=== PATIENT | male | born 1995 | race Caucasian/White ===

== ENCOUNTER → 2022-05-27 13:47 | Outpatient (BNVA) | payer OTHER, SELFPAY | PROVIDERS: Family Provider Specialist; PCP Nurse Practitioner Family; Visit Provider Nurse Practitioner Family | DX: R39.89 Other symptoms and signs involving the genitourinary system (principal); N50.819 Testicular pain, unspecified; F12.10 Cannabis abuse, uncomplicated; F41.1 Generalized anxiety disorder; F33.2 Major depressive disorder, recurrent severe without psychotic features; F43.12 Post-traumatic stress disorder, chronic | CPT/HCPCS: 87491; 87591 ==

== ENCOUNTER → 2022-06-08 10:49 | Outpatient (BNVA) | payer OTHER, SELFPAY | PROVIDERS: Family Provider Specialist; Visit Provider Nurse Practitioner Family | DX: Z20.2 Contact with and (suspected) exposure to infections with a predominantly sexual mode of transmission (principal); Z79.899 Other long term (current) drug therapy; F41.1 Generalized anxiety disorder; Z91.89 Other specified personal risk factors, not elsewhere classified; R39.89 Other symptoms and signs involving the genitourinary system | CPT/HCPCS: 80053; 85025; 86592; 86705; 86706; 86709; 86803; 87340; 87491; 87591 ==

== ENCOUNTER 2022-10-25 08:28 | Emergency (ER) | payer SELFPAY ==
[2022-10-25] VITALS (35 sets, daily range): BP systolic 99–126; BP diastolic 54–70; PULSE 64–102; RESP 9–21; TEMP 36.6; O2SAT 94–98; BMI 22.1
--- NOTE | 2022-10-25 08:36 | ECG_ITS ---
[facility] Test Date: 2022-10-25 Pat Name: Jose Ponce Department: Room: Gender: Male Travel Rn: : 1995 Requested By: Kostas Robledo Order Number: [id number] James MD: Francisco Ramirez M.D. 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 [id number]
--- NOTE | 2022-10-25 08:45 | XR_ITS ---
WS: [id number] Exam: XR ribs LT mn 3V w CXR1V [id number] Date/Time of Exam: 10/25/2022 8:53 AM Reason For Exam: rib pain No sign of acute left rib fracture. No pleural or pulmonary reactive changes are seen. The left lung is clear and fully expanded. Old left clavicle fracture. XR/XR ribs LT mn 3V w CXR1V [id number] IMPRESSION: 1. Normal left rib study.
[2022-10-25] MEDS: ketorolac 30 mg/mL INJ IVP (08:57)
[2022-10-25 09:04] LABS: Basophils % 0.7 %; Eosinophils # 0.2 10^3/uL (0.0-0.8); Eosinophils % 3.5 %; Hematocrit 43.8 % (42.0-52.0); Hemoglobin 14.5 g/dL (11.7-16.6); Lymphocytes # 1.1 10^3/uL (0.8-4.8); Lymphocytes % 19.9 %; Mean Corpuscular HGB Conc 33.1 g/dL (30.0-36.0); Mean Corpuscular Hemoglobin 32.3 pg (28.0-34.0); Mean Corpuscular Volume 97.6 fl (80-94); Mean Platelet Volume 9.6 fL (7.4-10.4); Monocytes # 0.5 10^3/uL (0.2-0.9); Monocytes % 8.6 %; Neutrophils # 3.79 10^3/uL (1.8-7.7); Neutrophils % 66.9 %; Nucleated Red Blood Cells % 0 %; Platelet Count 242 10^3/cmm (130-400); Red Blood Count 4.49 10^6/uL (4.1-5.3); Red Cell Distribution Width 12.6 % (12.1-15.1); White Blood Count 5.7 10^3/uL (4.0-10.0)
[2022-10-25 09:21] LABS: Blood Urea Nitrogen 10 mg/dL (6-20); Carbon Dioxide 28 mmol/L (22-29); Chloride 103 mmol/L (98-107); Glomerular Filtration Rate 133.3 mL/min (90-130); Glucose 107 mg/dL (65-115); Osmolality Calculated 292 mOsm/kg (285-295); Sodium 141 mmol/L (136-145)
--- NOTE | 2022-10-25 09:27 | ED_ITS ---
HPI - Chest Pain General: Chief Complaint: Chest Pain Stated Complaint: chest/rib pain Time Seen by Provider: 10/25/22 08:45 Source: patient Mode of arrival: ambulatory History of Present Illness: 27-year-old male presents to the emergency room with left rib pain. 2 days ago he fell he has worsening rib pain on the left side after reaching its worse when he takes a deep breath or moves. MD complaint: chest pain Onset (ago): day(s) Timing of current episode: episodic Prior episodes: Yes Onset: during exertion Pain location: left chest Pain radiation: none Quality: sharp Relieving factors: remaining still Exacerbating factors: palpation and movement Context: trauma/injury Associated symptoms: Deny abdominal pain, diaphoresis, dyspnea, fever(s), leg edema, nausea, palpitations, sense of impending doom, syncope or vomiting Treatment prior to arrival: none Review of Systems Const: Denies: fever(s), chills, fatigue, malaise or diaphoresis ENMT: Denies: throat pain, ear or mastoid pain, nasal discharge or nasal congestion Card: Denies: chest pain, palpitations, irregular heart rhythm, edema or syncope Resp: Denies: dyspnea, productive cough, non-productive cough or wheezing GI: Denies: abdominal pain, nausea or vomiting : Denies: flank pain, dysuria, urinary frequency or urinary urgency Skin/Breast: Denies: rash or pruritus PFSH ED PFSH: Medical History Anxiety Depression Insomnia Post traumatic stress disorder Family History Other CAD (coronary artery disease) Social History Smoking and tobacco status: current every day smoker smokeless tobacco Smokeless tobacco user: chewing tobacco Smokeless tobacco details: 1 can per week for 7 years Quit status (tobacco): has tried quititng Number of times tried to quit tobacco: 7 Second hand smoke exposure: Yes Alcohol intake: current Alcohol intake frequency: 3 or more drinks per day Current gender identity: Male Physical Exam Const: GENERAL APPEARANCE: cooperative and comfortable ORIENTATION/CONSCIOUSNESS: Yes awake, Yes oriented to person, Yes oriented to place and Yes oriented to time HENMT: COMMON NORMALS: normocephalic, atraumatic and hearing grossly normal bilaterally HEAD & SCALP: normocephalic and atraumatic Resp: COMMON NORMALS: normal respiratory effort, No retractions, No use of accessory muscles and clear to auscultation bilaterally AUSCULTATION: clear to auscultation bilaterally Cardio: COMMON NORMALS: regular rate, regular rhythm and No murmurs present (Cardio) RATE: regular rate RHYTHM: regular rhythm GI: COMMON NORMALS: Soft to palpation and No hepatosplenomegaly present AUSCULTATION: Yes normoactive bowel sounds PALPATION: Yes Soft to palpation, No Tenderness to palpation present (GI), No Guarding due to palpation present (GI) and Yes No hepatosplenomegaly present Extremity: COMMON NORMALS: normal to inspection, capillary refill normal, no clubbing, cyanosis or edema, no calf tenderness and no pedal edema Neuro: SENSORIUM/ORIENTATION: Yes oriented to person, Yes oriented to place and Yes oriented to time Skin: COMMON NORMALS: no rashes or lesions noted GENERAL SKIN EXAM: no rashes or lesions noted Course Vital Signs: Vital signs: Vital Signs Temperature 97.8 F 10/25/22 08:33 Pulse Rate 79 10/25/22 09:15 Respiratory Rate 14 10/25/22 09:15 Blood Pressure 126/67 10/25/22 09:15 Pulse Oximetry 96 10/25/22 09:15 Oxygen Delivery Me thod 10/25/22 08:33 MDM - Chest Pain Medical Decision Making Seen today for rib pain chest x-ray does not show any fractures pneumonia or pneumothorax. Laboratory tests unremarkable. All reviewed with the patient. We will discharge patient home with diclofenac and use ice given note for work follow-up with primary care if not improving Medical Records I reviewed the patient's medical records. Lab Data I reviewed the patient's lab results. 10/25/22 08:58 10/25/22 08:58 Radiology Impressions Ribs X-Ray 10/25/22 08:45 IMPRESSION: 1. Normal left rib study. Laboratory Results WBC 5.7 10^3/uL (4.0-10.0) 10/25/22 08:58 RBC 4.49 10^6/uL (4.1-5.3) 10/25/22 08:58 Hgb 14.5 g/dL (11.7-16.6) 10/25/22 08:58 Hct 43.8 % (42.0-52.0) 10/25/22 08:58 MCV 97.6 fl (80-94) H 10/25/22 08:58 MCH 32.3 pg (28.0-34.0) 10/25/22 08:58 MCHC 33.1 g/dL (30.0-36.0) 10/25/22 08:58 RDW 12.6 % (12.1-15.1) 10/25/22 08:58 Plt Count 242 10^3/cmm (130-400) 10/25/22 08:58 MPV 9.6 fL (7.4-10.4) 10/25/22 08:58 Neut % (Auto) 66.9 % 10/25/22 08:58 Lymph % (Auto) 19.9 % 10/25/22 08:58 [place] % (Auto) 8.6 % 10/25/22 08:58 Eos % (Auto) 3.5 % 10/25/22 08:58 Baso % (Auto) 0.7 % 10/25/22 08:58 Neut # (Auto) 3.79 10^3/uL (1.8-7.7) 10/25/22 08:58 Lymph # (Auto) 1.1 10^3/uL (0.8-4.8) 10/25/22 08:58 [place] # (Auto) 0.5 10^3/uL (0.2-0.9) 10/25/22 08:58 Eos # (Auto) 0.2 10^3/uL (0.0-0.8) 10/25/22 08:58 Baso # (Auto) 0.0 10^3/uL (0.0-0.1) 10/25/22 08:58 Nucleated RBC % (auto) 0 % 10/25/22 08:58 Nucleated RBCs # 0.0 /100WBC 10/25/22 08:58 Sodium 141 mmol/L (136-145) 10/25/22 08:58 Potassium 4.0 mmol/L (3.5-5.1) 10/25/22 08:58 Chloride 103 mmol/L (98-107) 10/25/22 08:58 Carbon Dioxide 28 mmol/L (22-29) 10/25/22 08:58 Anion Gap 14.0 (5-19) 10/25/22 08:58 BUN 10 mg/dL (6-20) 10/25/22 08:58 Creatinine 0.7 mg/dL (0.7-1.2) 10/25/22 08:58 GFR Calculation 133.3 mL/min (90-130) H 10/25/22 08:58 Glucose 107 mg/dL (65-115) 10/25/22 08:58 Calculated Osmolality 292 mOsm/kg (285-295) 10/25/22 08:58 Calcium 9.0 mg/dL (8.5-10.5) 10/25/22 08:58 Discharge Plan Discharge Patient Disposition: Home Clinical Impression: Contusion of rib on left side Condition: Stable Prescriptions: New diclofenac sodium 75 mg tablet,delayed release (DR/EC) 75 mg PO Q12H PRN (Reason: pain) Qty: 20 0RF No Action emtricitabine-tenofovir (TDF) 200-300 mg tablet 1 tab PO DAILY acetaminophen 325 mg Tablet 650 mg PO QID PRN (Reason: Pain) vitamin E 268 mg (400 unit) Capsule 268 mg PO DAILY Discharge Orders: Discharge ED (Routine); Ordered 10/25/22 Ordered By: Kostas Collins Discharge Diet: Usual diet Discharge Activity: Increase activity as tolerated Patient Instructions: Opioid Safety, Pain Management Activity Restrictions/Additional Instructions: You were seen today for rib contusion. There were no fractures or pneumonia on your chest x-rays. Recommend ice as needed you can use diclofenac instead of Motrin or Aleve. You may take Tylenol along with it. Follow-up with your primary care doctor if not improving. Stand Alone Forms: Work/School Release Coding Level of Care Code ED Network Field Engineer for Cliff Anderson
== END 2022-10-25 11:38 | disposition home or self-care (01) ==
PROVIDERS: Emergency Provider Family Medicine
DX: S20.212A Contusion of left front wall of thorax, initial encounter (principal); F17.210 Nicotine dependence, cigarettes, uncomplicated; W19.XXXA Unspecified fall, initial encounter
CPT/HCPCS: 71101; 80048; 85025; 93005; 96374; 99285; J1885

== ENCOUNTER 2023-09-07 19:28 | Emergency (ER) | payer MEDICAID, SELFPAY ==
[2023-09-07 19:48] VITALS: BP 108/70; PULSE 107; RESP 16; TEMP 36.6; O2SAT 99; BMI 19.5
--- NOTE | 2023-09-07 20:06 | ED_ITS ---
HPI - Skin/Abscess/Foreign Bdy General: Chief complaint: Skin/Abscess/Foreign Body Stated complaint: abscess under right arm Time Seen by Provider: 09/07/23 19:36 Source: patient Mode of arrival: ambulatory Limitations: no limitations History of Present Illness: 28-year-old male states that he had an a bscess to his right axilla for the last 4 days. States has been painfully in nature he rates the pain a 5 out of 10 he had some slight drainage from it denies any history of abscesses denies any fevers. Associated symptoms: Deny chills, fever(s), nausea or vomiting Review of Systems Const: Denies: fever(s) or chills ENMT: Denies: throat pain or dental pain Card: Denies: chest pain Resp: Denies: dyspnea GI: Denies: abdominal pain, nausea, vomiting or diarrhea Musc: Denies: neck pain or back pain Skin/Breast: Denies: rash Neuro: Denies: headache(s) PFS ED PFSH: Medical History Insomnia Depression Post traumatic stress disorder Anxiety Family History Other CAD (coronary artery disease) Social History Smoking and tobacco/nicotine status: current every day tobacco/nicotine user smokeless tobacco Smokeless tobacco user: chewing tobacco Smokeless tobacco details: 1 can per week for 7 years Quit status (tobacco/nicotine): has tried quititng Number of times tried to quit tobacco: 7 Second hand smoke exposure: Yes Alcohol intake: current Alcohol intake frequency: 3 or more drinks per day Current gender identity: Male Physical Exam Const: COMMON NORMALS: no acute distress, patient oriented x3 and healthy appearing HENMT: COMMON NORMALS: normocephalic and atraumatic HEAD & SCALP: normocephalic and atraumatic Neck/C-Spine: COMMON NORMALS: full ROM and supple Chest: COMMONS NORMALS: normal inspection of the chest Resp: COMMON NORMALS: normal respiratory effort Extremity: COMMON NORMALS: normal to inspection and full ROM Neuro: COMMON NORMALS: patient oriented x3, moves all extremities and no focal motor deficits Psych: COMMON NORMALS: mental status grossly normal, Normal thought process present and cooperative THOUGHT PROCESS: Normal thought process present Skin: COMMON NORMALS: no rashes or lesions noted NARRATIVE SKIN EXAM: Abscess noted to right armpit GENERAL SKIN EXAM: no rashes or lesions noted Procedures Abscess I/D Site: other (axilla) Side (if applicable): right Local Anesthetic: lidocaine 1% Amount of anesthesia used (mL): 8 Technique: incised with #11 blade Course Vital Signs: Vital signs: Vital Signs Temperature 97.9 F 09/07/23 19:48 Pulse Rate 107 H 09/07/23 19:48 Respiratory Rate 16 09/07/23 19:48 Blood Pressure 108/70 09/07/23 19:48 Pulse Oximetry 99 09/07/23 19:48 Oxygen Delivery Me thod Room Air 09/07/23 19:48 MDM - Skin/Abscess/Foreign Bdy Medicial Decision Making Patient presents here with an abscess to left axilla abscess was incised and drained here we will start him on antibiotics he is follow-up with PCP and return if worsening he understands agrees to plan. Medical Records I reviewed the patient's medical records. No radiology studies performed this visit Discharge Plan Discharge Patient Disposition: Home Clinical Impression: Abscess of skin or subcutaneous tissue Qualifiers: Site of cutaneous abscess of extremity: axilla Laterality: right Condition: Stable Prescriptions: New hydrocodone-acetaminophen 5-325 mg tablet 1 tab PO Q6H PRN (Reason: pain) Qty: 6 0RF sulfamethoxazole-trimethoprim [Bactrim DS] 800-160 mg tablet 1 tab PO BID 10 Days Qty: 20 0RF No Action emtricitabine-tenofovir (TDF) 200-300 mg tablet 1 tab PO DAILY acetaminophen 325 mg Tablet 650 mg PO QID PRN (Reason: Pain) vitamin E 268 mg (400 unit) Capsule 268 mg PO DAILY diclofenac sodium 75 mg tablet,delayed release (DR/EC) 75 mg PO Q12H PRN (Reason: pain) Qty: 20 0RF Discharge Orders: Discharge ED (Routine); Ordered 09/07/23 Ordered By: Christian Michele Discharge Diet: Advance as tolerated Discharge Activity: Resume usual activity Patient Instructions: Abscess (ED) Coding Level of Care Code ED Patient'S Librarian for Cliff Anderson
[2023-09-07] MEDS: lidocaine 1% INJ 10 mL (per mL) 20 ML XX (20:07)
[2023-09-07] MEDS: HYDROcodone-acetaminophen 7.5-325 mg Tablet 1 TAB PO (20:11)
[2023-09-07] MEDS: sulfamethoxazole-trimeth DS 160-800 mg Tablet 1 TAB PO (20:11)
== END 2023-09-07 20:24 | disposition home or self-care (01) ==
PROVIDERS: Emergency Provider Emergency Medicine
DX: L02.411 Cutaneous abscess of right axilla (principal); F17.220 Nicotine dependence, chewing tobacco, uncomplicated
CPT/HCPCS: 99283